=== PATIENT | female | born 1995 | race Caucasian/White ===

== ENCOUNTER 2017-10-20 12:57 | Emergency (ER) | payer OTHER ==
[~2017-10-20] VITALS: Ht 167.6 cm; Wt 55.0 kg
[2017-10-20 13:01] VITALS: TEMP 37.2; Ht 167.6 cm; Wt 55.0 kg
--- NOTE | 2017-10-20 13:57 | EMERGENCY ROOM VISIT NOTE ---
ED Visit Note First contact with patient: 13:05 CHIEF COMPLAINT: Sore throat HISTORY OF PRESENT ILLNESS: This 22-year-old female patient presents to the emergency department ambulatory, complaining of sore throat 5 days. The patient was seen by [facility] yesterday for the symptoms and told they are uncertain what the cause of her sore throat may be, however recommended she take ibuprofen for her symptoms. She states there is no testing performed. She reports sore throat which has been worsening since Wednesday. She does report a history of low-grade fever and awakening with sweats in the night. She reports a dry cough which began on Wednesday and voice hoarseness began on Wednesday. She states she feels that there is mucus and postnasal drainage down in her throat. She did notice a red, nonpruritic rash in the left axilla this morning. She does report shaking, chills, decreased appetite, and congestion with clear rhinorrhea. She reports odynophagia. The patient has taken ibuprofen and Dayquil without relief of her symptoms. She denies coughing up sputum or blood, nausea, or vomiting. There is pain with swallowing and the patient is having difficulty eating. The patient does not recall any known exposure to strep throat or mono, however, she is a college student. Denies a rash. REVIEW OF SYSTEMS: A 10 system review of systems was performed with positives and pertinent negatives listed in the history of present illness. All other systems were reviewed and are negative. ALLERGIES: None MEDICATIONS: Ibuprofen, DayQuil, OCPs PMH: None SOCIAL HISTORY: The patient is a [employer] student. She is an international student from [place]. She denies drug, alcohol, tobacco use. PHYSICAL EXAM: VITALS: Vitals are noted on the nurse's note and reviewed by myself. Vital signs stable. GENERAL: This is a 22-year-old female, in no acute distress, nondiaphoretic, well-developed well-nourished. SKIN: Macular, erythematous rash in the left axilla. The skin was otherwise without rashes, erythema, edema, or bruising. There is no tenting of the skin. Capillary reflex less than 2 seconds. HEAD: Normocephalic atraumatic. EARS: External auditory canals clear, tympanic membranes pearly franklin without erythema or effusion bilaterally. EYES: Pupils equal round and reactive to light and accommodation. Conjunctivae without injection, sclerae without icterus. Extraocular movements intact. NOSE: Patent, turbinates without inflammation or discharge. No sinus tenderness. MOUTH: Mucous membranes moist. Pharynx with mild erythema, but no exudate. Uvula midline. Airway patent. Tongue does not deviate. NECK: Supple without nuchal rigidity. Mild cervical lymphadenopathy. No thyromegaly. Cervical spine is nontender. No JVD. HEART: Regular rate and rhythm without murmurs gallops or rubs. LUNGS: Clear to auscultation bilaterally without wheezes, rales or rhonchi. No dullness to percussion. No retractions or accessory muscle use. ABDOMEN: Positive bowel sounds x 4. Normal tympanic percussion. Mild left lower quadrant tenderness. The abdomen was otherwise soft, nontender, without masses or organomegaly. Sullivan sign negative. No guarding or rebound tenderness. MUSCULOSKELETAL: No muscle atrophy, erythema, or edema noted. Full range of motion without joint tenderness in all extremities. No tenderness to palpation. Normal gait. Strength 5/5 throughout. NEURO: Patient was alert and oriented to person place and time. Normal sensation to light and sharp touch. No focal neurological deficits. EMERGENCY DEPARTMENT COURSE: The patient was seen and evaluated as above. Rapid strep test was performed and was negative. Culture is pending. Labs showed slightly decreased white blood cell count of 4.19. No anemia or thrombocytopenia noted. PRP was without renal or electrolyte abnormality. Pitkin screen was negative. I suspect a viral etiology of the patient's illness, and discussed with her that this will likely improve on its own. Influenza testing was not performed, as the patient is out of the window for Tamiflu. She has not had a documented fever. We had a long discussion regarding outpatient, symptomatic management. The patient verbalized understanding and was agreeable to the treatment plan. She will be given a prescription for Tessalon Perles to help with her coughing. She was encouraged to return immediately for any worsening symptoms, fevers, chest pain, dyspnea, coughing up blood, or other concerning symptoms. Discharge instructions reviewed, and the patient was discharged home in good condition. DIFFERENTIAL DIAGNOSIS: Mononucleosis, allergic rhinitis, URI, Viral pharyngitis , influenza, pneumonia, bronchitis, strep Pharyngitis, Thld-Ljte-Gyqyw Disease, Peritonsillar abscess, tonsilitis, malignancy, and others DIAGNOSIS: Upper respiratory infection The chart was completed utilizing [employer] Speech voice recognition software. Grammatical errors, random word insertions, pronoun errors, and incomplete sentences are an occasional consequence of this system due to software limitations, ambient noise, and hardware issues. Any formal questions or concerns about the content, text, or information contained within the body of this dictation should be directly addressed to the provider for clarification. Current/Historical Medications Scheduled Control Pills ( Control Pills), 1 TAB PO DAILY Scheduled PRN Benzonatate (Tessalon Perles), 200 MG PO TID PRN for Cough Allergies Coded Allergies: No Known Allergies (Unverified , 10/20/17) Vital Signs Date Time Temp Pulse Resp B/P (MAP) Pulse Ox O2 Delivery O2 Flow Rate FiO2 10/20/17 15:55 92 20 95/66 97 10/20/17 13:03 98 Room Air 10/20/17 13:01 37.2 92 20 117/79 98 Room Air Laboratory Results 10/20/17 13:56 Red Blood Count 4.57, Mean Corpuscular Volume 91.9, Mean Corpuscular Hemoglobin 31.3, Mean Corpuscular Hemoglobin Concent 34.0, Mean Platelet Volume 8.5, Neutrophils (%) (Auto) 60.0, Lymphocytes (%) (Auto) 24.1, Monocytes (%) (Auto) 15.0, Eosinophils (%) (Auto) 0.5, Basophils (%) (Auto) 0.2, Neutrophils # (Auto ) 2.51, Lymphocytes # (Auto) 1.01, Monocytes # (Auto) 0.63, Eosinophils # (Auto ) 0.02, Basophils # (Auto) 0.01 10/20/17 13:56 Test 10/20/17 13:56 White Blood Count 4.19 K/uL (4.8-10.8) Red Blood Count 4.57 M/uL (4.2-5.4) Hemoglobin 14.3 g/dL (12.0-16.0) Hematocrit 42.0 % (37-47) Mean Corpuscular Volume 91.9 fL (80-100) Mean Corpuscular Hemoglobin 31.3 pg (25-34) Mean Corpuscular Hemoglobin Concent 34.0 g/dl (32-36) Platelet Count 213 K/uL (130-400) Mean Platelet Volume 8.5 fL (7.4-10.4) Neutrophils (%) (Auto) 60.0 % Lymphocytes (%) (Auto) 24.1 % Monocytes (%) (Auto) 15.0 % Eosinophils (%) (Auto) 0.5 % Basophils (%) (Auto) 0.2 % Neutrophils # (Auto) 2.51 K/uL (1.4-6.5) Lymphocytes # (Auto) 1.01 K/uL (1.2-3.4) Monocytes # (Auto) 0.63 K/uL (0.11-0.59) Eosinophils # (Auto) 0.02 K/uL (0-0.5) Basophils # (Auto) 0.01 K/uL (0-0.2) RDW Standard Deviation 42.5 fL (36.4-46.3) RDW Coefficient of Variation 12.6 % (11.5-14.5) Immature Granulocyte % (Auto) 0.2 % Immature Granulocyte # (Auto) 0.01 K/uL (0.00-0.02) Anion Gap 5.0 mmol/L (3-11) Est Creatinine Clear Calc Drug Dose 112.9 ml/min Estimated GFR () 145.2 Estimated GFR (Non- 125.3 BUN/Creatinine Ratio 10.1 (10-20) Calcium Level 8.9 mg/dl (8.5-10.1) Monoscreen NEG (NEG) Departure Information Impression Primary Impression: Upper respiratory infection Dispostion Home / Self-Care Condition GOOD Prescriptions Benzonatate (Tessalon Perles) 200 Mg Cap 200 MG PO TID Y for Cough, #30 CAP Prov: Crystal Goldberg, YANNI 10/20/17 Referrals No Doctor, Assigned (PCP) Patient Instructions ED Upper Resp Infec No Abx Tx, My [facility] Additional Instructions You were seen and evaluated in the emergency department today for an upper respiratory infection. I do feel that based on your symptoms, and the duration of illness, this is likely viral in nature. As discussed, antibiotics will not treat viral illness. You have been given benzonatate (Tessalon Pearles) to be used for coughing. These should be taken 1 capsule up to 3 times per day as needed for coughing. Do not take this medication more than prescribed. You may use this medication in addition to OTC cough medications. For your sore throat, you may use a 1:1 mixture of liquid Benadryl and liquid Maalox. Gargle and spit this mixture. It will help to soothe the throat and provide some relief. Drink warm tea with honey and lemon, as this will also help to soothe the throat. Gargle with salt water frequently. As discussed, you should take OTC Mucinex and/or Sudafed for your symptoms. Please do not exceed the recommended daily dosages. Ibuprofen(Motrin, Advil) may be used for fever or pain. Use 600mg every six hours as needed. Take with food. Avoid using more than 2400mg in a 24 hour period. Do not use 2400mg per day for more than three consecutive days without physician direction. Prolonged inappropriate use can lead to stomach upset or ulcers. This medication will help with the swelling in your sinuses. (AND/OR) Acetaminophen(Tylenol) may be used for fever or pain. Use 1000mg every six hours as needed. Avoid using more than 3000mg in a 24 hour period. For congestion, you may use Flonase OTC. You may want to consider zinc, echinacea, and vitamin C to help boost your immunity. Please get plenty of rest and drink plenty of fluids. Please return or follow-up with your PCP in 1 week if you are not experiencing any improvement in your symptoms. Return to the emergency department for coughing up blood, difficulty breathing, chest pain, worsening symptoms, or for other concerns. School Instructions Return To School: 2 days Problem Qualifiers Primary Impression: Upper respiratory infection URI type: unspecified viral URI Qualified Codes: J06.9 - Acute upper respiratory infection, unspecified
[2017-10-20 14:17] LABS: BASO % 0.2 %; BASO ABS # 0.01 K/uL (0-0.2); EOS % 0.5 %; EOS ABS # 0.02 K/uL (0-0.5); HEMOGLOBIN 14.3 g/dL (12.0-16.0); IG# 0.01 K/uL (0.00-0.02); LYMPH % 24.1 %; LYMPH ABS # 1.01 K/uL (1.2-3.4); MEAN CELL VOLUME 91.9 fL (80-100); MEAN CORPUSCULAR HEMOGLOBIN 31.3 pg (25-34); MEAN PLATELET VOLUME 8.5 fL (7.4-10.4); MONO ABS # 0.63 K/uL (0.11-0.59); NEUT ABS # 2.51 K/uL (1.4-6.5); PLATELET COUNT 213 K/uL (130-400); RED CELL DISTRIBUTION WIDTH CV 12.6 % (11.5-14.5); RED CELL DISTRIBUTION WIDTH SD 42.5 fL (36.4-46.3); WHITE BLOOD COUNT 4.19 K/uL (4.8-10.8)
[2017-10-20 14:35] LABS: CALCIUM 8.9 mg/dl (8.5-10.1); CREATININE 0.69 mg/dl (0.60-1.20); POTASSIUM 4.1 mmol/L (3.5-5.1)
[2017-10-20] MEDS ORDERED: BCPILLS PO (14:54)
[2017-10-20] MEDS ORDERED: BENZ1CAP90 PO (15:41)
[2017-10-20 15:55] VITALS: BP 95/66; PULSE 92; O2SAT 97
== END 2017-10-20 15:56 | disposition home or self-care (01) ==
LOC: C.EDB 12:58 → C.EDD 15:56
DX: J06.9 Acute upper respiratory infection, unspecified (principal)